=== PATIENT | female | born 1975 | race American Indian/Alaskan Native ===

== ENCOUNTER 2016-11-11 17:47 | Emergency (ER) | payer OTHER | END 2016-11-11 20:30 | disposition left against medical advice (07) | LOC: ED 17:47 | DX: T78.1XXA Other adverse food reactions, not elsewhere classified, initial encounter (principal); X58.XXXA Exposure to other specified factors, initial encounter; Z53.21 Procedure and treatment not carried out due to patient leaving prior to being seen by health care provider ==

== ENCOUNTER 2016-11-12 12:35 | Emergency (ER) | payer OTHER ==
--- NOTE | 2016-11-12 15:15 | Emergency Department Report ---
HPI - General Chief Complaint: Allergic Reaction Time Seen by Provider: 11/12/16 15:01 - HPI HPI: Patient is a 41-year-old female who presents to the ED complaining of allergic reaction to unknown stemmed this today. 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 She states her face started burning and she started itching all over her body today. Patient reports throat tightness. Patient denies fevers/chills/nausea/shortness of breath/difficulty breathing/ edema/chest pain/diarrhea/vomiting. ED Past Medical Hx - Past Medical History Previous Medical History?: Yes Hx Asthma: Yes - Surgical History Past Surgical History?: Yes Additional Surgical History: tubal ligation - Social History Smoking Status: Never Smoker Substance Use Type: Alcohol - Medications Home Medications: Home Medications Medication Instructions Recorded Confirmed Last Taken Type HYDROcodone/APAP 10-325 [[place] 1 each PO Q4-6H PRN #20 tablet 07/12/14 Unknown Rx 10-325 mg TAB] EPINEPHrine [Epipen 2-Josep] 0.3 mg IJ PRN PRN #1 auto.injct 11/12/16 Unknown Rx hydrOXYzine HCL [Atarax] 25 mg PO Q6HR PRN #20 tablet 11/12/16 Unknown Rx predniSONE [Deltasone] 50 mg PO QDAY #5 tab 11/12/16 Unknown Rx ED Review of Systems ROS: Stated complaint: ALLERGIC REACTION Other details as noted in HPI Physical Exam - Physical Exam Vital Signs: Vital Signs 11/12/16 12:41 Temperature 98.6 F Pulse Rate 89 Respiratory 20 Rate Blood Pressure 134/80 O2 Sat by Pulse 97 Oximetry Physical Exam: GENERAL: Alert and oriented x3, no apparent distress, Normal Gait, atraumatic. HEAD: Head is normocephalic and a-traumatic. EYES: Extra ocular muscles are intact. Pupils are equal, round, and reactive to light and accommodation. EARS: symetrical, atraumatic, non tender, ear canal clear and moderate cerumen, tympanic membrance non inflamed. gross auditory nml bilaterally. NOSE: Nose symetrical, Nontender,Nares appeared normal. MOUTH:Mouth is well hydrated and without lesions. Tonsils nonerythematous or swollen, Uvula midline, Tongue not elevated. Mucous membranes are moist. Posterior pharynx clear, no exudate or lesions. Patent airways. NECK: Supple. Non edematous, No carotid bruits. No lymphadenopathy or thyromegaly. LUNGS: Symetrical with respiration, No wheezing, no rales or crackles, CTAB. HEART: S1, S2 present, regular rate and rhythm without murmur, no rubs, no gallops. ABDOMEN: No organomegaly was noted,Positive bowel sounds, soft, and non- distended. . Nontender to palpation on all Quadrants, NO CVA tenderness. EXTREMITIES/MUSCULOSKELETAL: No cyanosis, clubbing, rash, lesions or edema. Full ROM bilaterally. UE/LE Pulses 2+ bilaterally. LE and UE 5+ strength bilaterally NEUROLOGIC: No focal Deficit, Cranial nerves II through XII are grossly intact. No loss of sensation, No facial droop, Negative rhomberg. PSYCHIATRIC: Mood is congruent with affect, denies suicidal or homicidal ideations. SKIN: Warm and dry, No lesions, No ulceration or induration present. Mild maculopapular rash on chest area and cheeks. ED Course Vital Signs 11/12/16 12:41 Temperature 98.6 F Pulse Rate 89 Respiratory 20 Rate Blood Pressure 134/80 O2 Sat by Pulse 97 Oximetry ED Medical Decision Making - Medical Decision Making 41 female presents with allergic dermatitis secondary to onions. Patient received 125 mg IM Solu-Medrol. Patient vital signs stable. Patient is in no acute distress. Patient is not in anaphylactic reaction. No edema present,throat clear and open Discussed the patient will follow up with primary care physician. Discussed prescription of EpiPen 2. Discussed to take medication as prescribed. Discussed to use EpiPen only when needed. Patient states she verbally understands and will comply to follow-up. Critical care attestation.: If time is entered above; I have spent that time in minutes in the direct care of this critically ill patient, excluding procedure time. ED Disposition Clinical Impression: Food allergic contact dermatitis Disposition: DISCHARGED TO HOME OR SELFCARE Is pt being admited?: No Does the pt Need Aspirin: No Condition: Stable Instructions: Contact Dermatitis (ED) Additional Instructions: In case of allergic reaction use EpiPen immediately. Inject EpiPen into muscle in incidence of an allergic reaction All of the primary care physician as discussed Take medications as discussed plus prescribed Prescriptions: hydrOXYzine HCL [Atarax] 25 mg PO Q6HR PRN #20 tablet PRN Reason: Itching predniSONE [Deltasone] 50 mg PO QDAY #5 tab EPINEPHrine [Epipen 2-Josep] 0.3 mg IJ PRN PRN #1 auto.injct PRN Reason: Anaphylaxis Referrals: PRIMARY CARE, [Primary Care Provider] - 3-5 Days [facility] [Outside] - 3-5 Days [facility] [place] [Outside] - 3-5 Days [facility] [Outside] - 3-5 Days [facility] [Outside] - 3-5 Days Forms: Work/School Release Form(ED) Time of Disposition: 15:41
[2016-11-12 15:58] VITALS: BP 127/83
== END 2016-11-12 15:59 | disposition home or self-care (01) ==
LOC: ED 12:35
DX: L23.6 Allergic contact dermatitis due to food in contact with the skin (principal); J45.909 Unspecified asthma, uncomplicated; X58.XXXA Exposure to other specified factors, initial encounter
CPT/HCPCS: 96372; 99282; J2930

== ENCOUNTER 2021-05-20 14:33 | Emergency (ER) | payer OTHER ==
[2021-05-20] MEDS ORDERED: FAMOTIDINE 20 MG/2 ML INJ IV ONE ×2 (20:26→22:45)
[2021-05-20] MEDS ORDERED: diphenhydrAMINE 50 MG/ML VIAL IV ONE (22:26)
[2021-05-20] MEDS ORDERED: methylPREDNISolone Sod Succinate 125 MG/2 ML INJ IV ONE (22:26)
--- NOTE | 2021-05-20 22:27 | Emergency Department Report ---
ED Allergic Reaction HPI - General Chief complaint: Allergic Reaction Stated complaint: ALLERGIC REACTION FROM ONIONS Time Seen by Provider: 05/20/21 22:22 Source: patient Mode of arrival: Ambulatory Limitations: No Limitations - History of Present Illness Initial Comments: Patient is a 46-year-old female who presents emergency room with complaints of p ain. Patient states that she is allergic to onions and anytime she comes in contact or smells onions she has allergic reaction. Patient states she is having lip swelling and hoarseness to her voice. Patient states she had allergic reaction in past. Patient states it happened approximately 1 hour prior to arrival. Patient states she has not taken any medications. Patient denies chest pain. Patient denies shortness of breath. Patient denies recent travel. Patient denies recent international travel. Patient denies exposure to the novel coronavirus. Patient denies sick contacts. Patient denies fever and chills. Patient denies cough. Patient denies diarrhea. Patient denies coming in contact with anybody with symptoms of the novel coronavirus. MD Complaint: allergic reaction, hives, facial swelling -: Sudden Exposure: food Symptoms: rash, itching, facial swelling, lip swelling, difficulty swallowing, hoarseness. denies: difficulty breathing, orolingual swelling, syncopy, dizziness, nausea, vomiting, abdominal pain Severity: severe Treatment Prior to Arrival: none Previous Allergy History: prior ED visit(s) - Related Data Previous Rx's Medication Instructions Recorded Last Taken Type HYDROcodone/APAP 10-325 [[place] 1 each PO Q4-6H PRN #20 tablet 07/12/14 Unknown Rx 10-325 mg TAB] hydrOXYzine HCL [Atarax] 25 mg PO Q6HR PRN #20 tablet 11/12/16 Unknown Rx predniSONE [Deltasone] 50 mg PO QDAY #5 tab 11/12/16 Unknown Rx EPINEPHrine [Epipen 2-Josep] 0.3 mg IJ PRN PRN #1 auto.injct 05/20/21 Unknown Rx methylPREDNISolone [Medrol 4MG 4 mg PO DAILY 6 Days #1 tab.ds.pk 05/20/21 Unknown Rx DOSEPAK (21 tabs)] Allergies Allergy/AdvReac Type Severity Reaction Status Date / Time onions Allergy Unknown Uncoded 05/20/21 15:13 ED Review of Systems ROS: Stated complaint: ALLERGIC REACTION FROM ONIONS Other details as noted in HPI Constitutional: denies: chills, fever Eyes: denies: eye pain, eye discharge, vision change ENT: as per HPI, throat pain. denies: ear pain Respiratory: denies: cough, shortness of breath, wheezing Cardiovascular: denies: chest pain, palpitations Endocrine: no symptoms reported Gastrointestinal: denies: abdominal pain, nausea, diarrhea Genitourinary: denies: urgency, dysuria, discharge Musculoskeletal: denies: back pain, joint swelling, arthralgia Skin: denies: rash, lesions Neurological: denies: headache, weakness, paresthesias Psychiatric: denies: anxiety, depression Hematological/Lymphatic: denies: easy bleeding, easy bruising ED Past Medical Hx - Past Medical History Previous Medical History?: Yes Hx Asthma: Yes - Surgical History Past Surgical History?: Yes Additional Surgical History: tubal ligation - Family History Family history: no significant - Social History Smoking Status: Never Smoker Substance Use Type: Alcohol - Medications Home Medications: Home Medications Medication Instructions Recorded Confirmed Last Taken Type HYDROcodone/APAP 10-325 [[place] 1 each PO Q4-6H PRN #20 tablet 07/12/14 Unknown Rx 10-325 mg TAB] hydrOXYzine HCL [Atarax] 25 mg PO Q6HR PRN #20 tablet 11/12/16 Unknown Rx predniSONE [Deltasone] 50 mg PO QDAY #5 tab 11/12/16 Unknown Rx EPINEPHrine [Epipen 2-Josep] 0.3 mg IJ PRN PRN #1 auto.injct 05/20/21 Unknown Rx methylPREDNISolone [Medrol 4MG 4 mg PO DAILY 6 Days #1 tab.ds.pk 05/20/21 Unknown Rx DOSEPAK (21 tabs)] ED Physical Exam - General Limitations: No Limitations General appearance: alert, in no apparent distress - Head Head exam: Present: atraumatic, normocephalic - Eye Eye exam: Present: normal appearance - ENT ENT exam: Present: mucous membranes moist - Neck Neck exam: Present: normal inspection - Respiratory Respiratory exam: Present: normal lung sounds bilaterally. Absent: respiratory distress, wheezes, rales, rhonchi, stridor - Cardiovascular Cardiovascular Exam: Present: regular rate, normal rhythm. Absent: systolic murmur, diastolic murmur, rubs, gallop - GI/Abdominal GI/Abdominal exam: Present: soft, normal bowel sounds - Extremities Exam Extremities exam: Present: normal inspection - Back Exam Back exam: Present: normal inspection - Neurological Exam Neurological exam: Present: alert, oriented X3 - Psychiatric Psychiatric exam: Present: normal affect, normal mood - Skin Skin exam: Present: warm, dry, intact, normal color. Absent: rash ED Course Vital Signs 05/20/21 05/20/21 05/20/21 15:17 15:18 22:51 Temperature 99.0 F 98.3 F Pulse Rate 74 77 Respiratory 20 16 Rate Blood Pressure 138/84 Blood Pressure 145/77 [Right] O2 Sat by Pulse 97 99 Oximetry - Reevaluation(s) Reevaluation #1: Patient states she feeling better. Patient has had all her medications. Patient's vital signs are stable. Patient denies chest pain. Patient denies shortness of breath. Patient states her throat soreness is gone. Patient states she is able to swallow normal. Patient states her voice is improved. Patient states her lips have returned to normal. I discussed all results and clinical findings with patient. I discussed plan of care with patient. Patient agrees with plan of care. Patient is stable for discharge. Patient will be discharged home. Patient given discharge instructions. Patient voiced understanding of discharge instructions. 05/20/21 23:28 ED Medical Decision Making - Medical Decision Making Patient is a 46-year-old female that presents emergency room for allergic reaction. Patient complained of hoarseness and difficulty swallowing lip swelling. Patient also complained of patient was redness of the skin. Patient did not take any medication prior to the injection. Patient given Benadryl, Pepcid and Solu-Medrol. Patient symptoms resolved with treatment. Patient responded well to treatment. Patient stated all her symptoms resolved. Patient not require any further emergency medical service. Patient did not require any inpatient service. Patient stable for discharge. Patient has reassuring vital signs. Patient will need to follow-up with an cut off saw grader and take medication as prescribed. - Differential Diagnosis Reaction, hoarseness, lip swelling Critical care attestation.: If time is entered above; I have spent that time in minutes in the direct care of this critically ill patient, excluding procedure time. ED Disposition Clinical Impression: Lip swelling, Hoarseness of voice Allergic reaction Qualifiers: Encounter type: initial encounter Qualified Code(s): T78.40XA - Allergy, unspecified, initial encounter Disposition: DC-01 TO HOME OR SELFCARE Is pt being admited?: No Does the pt Need Aspirin: No Condition: Stable Instructions: Allergies, Adult, [id number] Additional Instructions: Patient to follow-up with primary care in 2 to 3 days. Patient to follow-up with cut off saw grader in 2 to 3 days. Patient to rest. Patient to increase water. Patient to avoid strenuous exercise or heavy lifting until cleared by cut off saw grader and primary care. Patient to take Tylenol or ibuprofen as needed for pain. Patient to take meds as directed. Patient to return to the ER if condition worsens, changes or new symptoms arise. Prescriptions: EPINEPHrine [Epipen 2-Josep] 0.3 mg IJ PRN PRN #1 auto.injct PRN Reason: Anaphylaxis methylPREDNISolone [Medrol 4MG DOSEPAK (21 tabs)] 4 mg PO DAILY 6 Days #1 tab.[id number] Referrals: PRIMARY MD STUART [Primary Care Provider] - 2-3 Days MERCED RING MD [Referring] - 2-3 Days Time of Disposition: 23:34
[2021-05-21 00:04] VITALS: BP 123/68
== END 2021-05-21 00:04 | disposition home or self-care (01) ==
LOC: ED 14:33
DX: R60.0 Localized edema (principal); R49.0 Dysphonia; T78.1XXA Other adverse food reactions, not elsewhere classified, initial encounter; J45.909 Unspecified asthma, uncomplicated; Z98.890 Other specified postprocedural states; Z91.018 Allergy to other foods; X58.XXXA Exposure to other specified factors, initial encounter
CPT/HCPCS: 96374; 96375; 99282; J1200; J2930